=== PATIENT | female | born 1990 | race Two or more races ===

== ENCOUNTER 2020-05-11 14:11 | Emergency (ER) | payer OTHER ==
[~2020-05-11] VITALS: Ht 162.6 cm; Wt 102.1 kg
[2020-05-11 14:34] VITALS: BP 148/115
== END 2020-05-11 15:17 | disposition home or self-care (01) ==
LOC: ER 14:18
DX: J40 Bronchitis, not specified as acute or chronic (principal); F84.0 Autistic disorder

== ENCOUNTER 2020-05-21 16:52 | Inpatient (IN) | payer MEDICAID, OTHER ==
[~2020-05-21] VITALS: Ht 152.4 cm; Wt 111.2 kg
[2020-05-21 17:57] LABS: BASOPHILS # (AUTO) 0.1 /CMM (0.0-0.2); BASOPHILS % (AUTO) 0.9 % (0.0-2.0); EOSINOPHILS % (AUTO) 0.5 % (0.0-6.0); HEMATOCRIT 35 % (33-45); LYMPHOCYTES # (AUTO) 1.6 /CMM (0.8-4.8); LYMPHOCYTES % (AUTO) 12.3 % (20.0-44.0); MEAN CORPUSCULAR HGB CONC 32 g/dl (31.0-36.0); MEAN CORPUSCULAR VOLUME 93 fL (82-100); MONOCYTES # (AUTO) 0.8 /CMM (0.1-1.30); NEUTROPHILS # (AUTO) 10.5 /CMM (1.8-8.9); NEUTROPHILS % (AUTO) 80.3 % (43.0-81.0); PLATELET COUNT (AUTO) 243 /CMM (150-450); RED BLOOD CELL COUNT(AUTO) 3.76 MIL/uL (4.0-5.2); WHITE BLOOD COUNT (AUTO) 13.1 K/uL (4.3-11.0)
--- NOTE | 2020-05-21 18:08 | NUR ---
MOVE SHEET SUBMITTED.
[2020-05-21 18:09] LABS: CREATININE 0.8 mg/dL (0.6-1.3); POTASSIUM 3.9 mmol/L (3.5-5.1)
--- NOTE | 2020-05-21 18:17 | NUR ---
COVID SWAB AND FLU SWAB DONE AND SENT TO LAB. URINE COLLECTED VIA CLEAN CATCH AND SENT TO LAB
[2020-05-21 18:22] LABS: ALBUMIN 2.8 g/dL (3.4-5.0); BILIRUBIN,TOTAL 0.3 mg/dL (0.2-1.0); TOTAL PROTEIN, SERUM 6.5 g/dL (6.4-8.2)
[2020-05-21 18:25] LABS: BILIRUBIN,URINE Negative (NEGATIVE); COLOR,URINE YELLOW (YELLOW); LEUKOCYTE ESTERASE ,URINE Moderate (NEGATIVE); NITRITE, URINE Negative (NEGATIVE); PH,URINE 5.5 (5.0-8.0); PROTEIN,URINE Negative (NEGATIVE); UGLUCOSE Negative (NEGATIVE); UROBILINOGEN,URINE 0.2 EU/dL (0.2)
[2020-05-21 18:38] LABS: BACTERIA,URINE 2+ /HPF (None Seen); SQUAMOUS EPITHELIAL CELL,UR Few /HPF (None Seen)
[2020-05-21 18:57] LABS: D-DIMER 1.33 mg/L(FEU (0.17-0.50)
[2020-05-21] MEDS ORDERED: CEFTRIAXONE 1GM BAG (ER ONLY) 50 ML IV ONE ×2 (19:00→19:02)
[2020-05-21] MEDS ORDERED: AZITHROMYCIN 500 MG in IV D5W 250 ML IV ONE (19:00)
[2020-05-21] MEDS ORDERED: DEXAMETHASONE SOD PHOSPHATE 10 MG/ML VIAL IV ONE (19:00)
[2020-05-21 19:02] LABS: C-REACTIVE PROTEIN 3.1 mg/dL (0.0-0.9)
[2020-05-21] MEDS ORDERED: DEXAMETHASONE SOD PHOSPHATE 10 MG/ML VIAL ONE (19:02)
--- NOTE | 2020-05-21 19:11 | NUR ---
SUMA POLO AT BEDSIDE
[2020-05-21] MEDS ORDERED: AZITHROMYCIN 500 MG VIAL ONE (19:32)
[2020-05-21] MEDS ORDERED: ONDANSETRON HCL/PF 4 MG/2 ML VIAL IVP PRN (20:00)
[2020-05-21] MEDS ORDERED: HOME MED MISCELLANEOUS XX SCH (20:00)
[2020-05-21] MEDS ORDERED: ACETAMINOPHEN 650 MG/SUPP.RECT RC PRN (20:00)
[2020-05-21] MEDS ORDERED: ALBUTEROL SULFATE 8 GM HFA.AER.AD IH PRN (20:00)
[2020-05-21] MEDS ORDERED: GUAIFENESIN LA 600 MG TABLET.SA PO PRN (20:00)
--- NOTE | 2020-05-21 20:43 | NUR ---
TOOK OVER PT CARE. PT ON 4L NC SAT 98%, REMAINS ON MONITOR AND PULSE OX. PT REQUESTED TO EAT. PT PROVIDED WITH WATER AND CRACKERS.
--- NOTE | 2020-05-21 21:41 | NUR ---
PT REQUESTED FOR MORE FOOD. PROVIDED WITH CHUCK.
--- NOTE | 2020-05-21 23:12 | NUR ---
PT REQUESTED FOR COOKIES AND MILK.
--- NOTE | 2020-05-22 00:40 | NUR ---
PT NOTED TO BE ASLEEP, SAT 97%, 4L NC. VSS.
--- NOTE | 2020-05-22 04:10 | NUR ---
PT REQUESTING FOR FOOD, PT PROVIDED WITH CRACKERS AND WATER. PT AWARE BREAKFAST WILL BE SERVED AT 7:30AM
[2020-05-22 05:24] LABS: BASOPHILS % (AUTO) 0.2 % (0.0-2.0); EOSINOPHILS % (AUTO) 0.1 % (0.0-6.0); HEMATOCRIT 34 % (33-45); HEMOGLOBIN 10.8 g/dL (11.5-14.8); LYMPHOCYTES # (AUTO) 1.4 /CMM (0.8-4.8); LYMPHOCYTES % (AUTO) 9.7 % (20.0-44.0); MEAN CORPUSCULAR HGB CONC 32 g/dl (31.0-36.0); MEAN CORPUSCULAR VOLUME 92 fL (82-100); MONOCYTES # (AUTO) 0.6 /CMM (0.1-1.30); MONOCYTES % (AUTO) 3.9 % (2.0-12.0); NEUTROPHILS # (AUTO) 12.1 /CMM (1.8-8.9); NEUTROPHILS % (AUTO) 86.1 % (43.0-81.0); PLATELET COUNT (AUTO) 248 /CMM (150-450); RED BLOOD CELL COUNT(AUTO) 3.73 MIL/uL (4.0-5.2); WHITE BLOOD COUNT (AUTO) 14.1 K/uL (4.3-11.0)
[2020-05-22 05:35] LABS: ALBUMIN 2.7 g/dL (3.4-5.0); BILIRUBIN,TOTAL 0.3 mg/dL (0.2-1.0); CALCIUM, SERUM 7.1 mg/dL (8.5-10.1); CREATININE 0.7 mg/dL (0.6-1.3); TOTAL PROTEIN, SERUM 6.2 g/dL (6.4-8.2)
--- NOTE | 2020-05-22 07:11 | NUR ---
REMAINS ON 4L NC. SAT 97-99%. IN BED COMFORTABLY. VSS.
--- NOTE | 2020-05-22 07:35 | NUR ---
Pt in bed 110x4. on 02 via nc @ 5lpm. not in resp dsitress, breathing even and unlabored.
[2020-05-22] MEDS ORDERED: OXCA600T8 PO (08:34)
[2020-05-22] MEDS ORDERED: PARO20TA7 PO (08:34)
[2020-05-22] MEDS ORDERED: LATUDA (08:39)
[2020-05-22] MEDS ORDERED: ASCO100031 PO (08:39)
[2020-05-22] MEDS ORDERED: ARIP30TA3 PO (08:39)
[2020-05-22] MEDS ORDERED: CHLO10TA5 PO (08:39)
[2020-05-22] MEDS ORDERED: ENOXAPARIN SODIUM 40 MG/0.4 ML DISP.SYRIN SQ ONE (08:44)
[2020-05-22] MEDS ORDERED: OXCARBAZEPINE 150 MG TABLET ONE (08:44)
[2020-05-22] MEDS ORDERED: chlorproMAZINE HCL 25 MG TABLET ONE ×2 (08:44→14:52)
[2020-05-22] MEDS: OXCARBAZEPINE 150 MG TABLET PO SCH ×2 (09:11→17:53)
[2020-05-22] MEDS: ARIPIPRAZOLE 5 MG TABLET PO SCH (09:11)
[2020-05-22] MEDS: PAROXETINE HCL 20 MG TABLET PO SCH (09:11)
[2020-05-22] MEDS: chlorproMAZINE HCL 25 MG TABLET PO SCH ×3 (09:11→17:53)
[2020-05-22] MEDS: ASCORBIC ACID 500 MG TABLET PO SCH (09:11)
[2020-05-22] MEDS: ENOXAPARIN SODIUM 40 MG/0.4 ML DISP.SYRIN SQ SCH (09:12)
[2020-05-22] MEDS ORDERED: AZITHROMYCIN 500 MG in IV D5W 250 ML IV SCH (10:00)
[2020-05-22] MEDS ORDERED: ACETAMINOPHEN 325 MG TABLET ONE (10:31)
[2020-05-22] MEDS: ACETAMINOPHEN 325 MG TABLET PO PRN (10:35)
[2020-05-22] MEDS ORDERED: DEXAMETHASONE SOD PHOSPHATE 10 MG/ML VIAL ONE (11:55)
[2020-05-22] MEDS ORDERED: FUROSEMIDE 20 MG/2 ML VIAL ONE (11:55)
[2020-05-22] MEDS: DEXAMETHASONE SOD PHOSPHATE 10 MG/ML VIAL IV SCH (12:04)
[2020-05-22] MEDS: FUROSEMIDE 20 MG/2 ML VIAL IV SCH ×2 (12:05→17:53)
--- NOTE | 2020-05-22 12:57 | NUR ---
COVID RESULT: NEGATIVE
[2020-05-22 13:28] LABS: ABG BASE EXCESS 8.4 mmol/L; ABG OXYGEN SATURATION 89.8 % (92.0-98.5); ABG PCO2 46.7 mmHg (35.0-45.0); ABG PH 7.469 (7.350-7.450); ABG PO2 57.3 mmHg (75.0-100.0); AaDO2 174.2 mmHg; COHb 0.7 % (0.5-1.5); MetHb 0.2 % (0.0-1.5); SITE, ABG Right Radial; VENT MODE, BG 5L NC
--- NOTE | 2020-05-22 14:48 | NUR ---
GOT BED 106
--- NOTE | 2020-05-22 14:59 | NUR ---
REPORT GIVEN TO CHING UNGER FOR SISI
--- NOTE | 2020-05-22 15:31 | NUR ---
pt transported to unit on [place] with emt and rn at bedside w/ acls protocol.
[2020-05-22 15:35] VITALS: BP 146/74
--- NOTE | 2020-05-22 15:40 | NUR ---
MILL OPERATOR HEAD/1 NOTES Patient received from ED and report given by Tylor. Patient received ambulating to unit. Patient is alert and oriented with developmental delay. She is not in any distress. Tele monitor placed and vitals checked. Patient assessed for admission. No c/o pain or discomfort. Patient is on 5lpm 02 via n/c with 02 sat of 92%. Patient provided keiry care and reminded to use call light. Bed is in lowest and locked position. Call light with in reach.
[2020-05-22] MEDS ORDERED: CEFTRIAXONE 1 G in IV D5W 50 ML IV SCH (18:00)
[2020-05-22] MEDS: CEFTRIAXONE 2 G in IV D5W 100 ML IV SCH (18:54)
--- NOTE | 2020-05-22 18:55 | NUR ---
STRUCTURAL STEEL WORKER APPRENTICE/1 CLOSING NOTES Patient in bed in a comfortable position. Patient is not in any respiratory distress.On 02 5 lpm via n/c with 02 sat reading of 98%. Head of the bed kept elevated. No c/o sob. Patient reminded to use call light for assistance. Bed is in lowest and locked position. Will endorse to oncoming nurse for SISI.
[2020-05-22 20:00] VITALS: BP 104/61
[2020-05-22] MEDS: DOXYCYCLINE 100 MG in IV D5W 100 ML IV SCH (21:48)
[2020-05-23] VITALS (7 sets, daily range): BP systolic 94–139; BP diastolic 50–73
--- NOTE | 2020-05-23 07:30 | NUR ---
RN OPENING NOTE PATIENT IN BED, RESTING. NO S/S OF DISTRESS AT THIS TIME. ALERT/ORIENTED X3, WITH HISTORY OF MENTAL RETARDATION. PATIENT IS VERBAL, ABLE TO MAKE NEEDS KNOWN. CURRENTLY ON 5L O2 THERAPY VIA NASAL CANNULA. TOLERATING WELL, O2 SATURATION 96%. CURRENTLY HAS A R AC 20G IV, INTACT AND PATENT. PATIENT DENIES PAIN AT THIS TIME. ALL SAFETY MEASURES IN PLACE PER HOSPITAL POLICY, BED LOCKED IN LOWEST POSITION. CALL LIGHT WITHIN REACH. WILL CONT TO MONITOR AND PROVIDE TREATMENT.
[2020-05-23 07:49] LABS: CREATININE 0.7 mg/dL (0.6-1.3); POTASSIUM 3.9 mmol/L (3.5-5.1)
[2020-05-23 07:52] LABS: BASOPHILS % (AUTO) 0.4 % (0.0-2.0); EOSINOPHILS % (AUTO) 0.8 % (0.0-6.0); HEMATOCRIT 36 % (33-45); HEMOGLOBIN 11.3 g/dL (11.5-14.8); LYMPHOCYTES # (AUTO) 2.3 /CMM (0.8-4.8); LYMPHOCYTES % (AUTO) 21.1 % (20.0-44.0); MEAN CORPUSCULAR HGB CONC 31 g/dl (31.0-36.0); MEAN CORPUSCULAR VOLUME 93 fL (82-100); MONOCYTES # (AUTO) 0.8 /CMM (0.1-1.30); MONOCYTES % (AUTO) 7.1 % (2.0-12.0); NEUTROPHILS # (AUTO) 7.7 /CMM (1.8-8.9); NEUTROPHILS % (AUTO) 70.6 % (43.0-81.0); PLATELET COUNT (AUTO) 240 /CMM (150-450); RED BLOOD CELL COUNT(AUTO) 3.91 MIL/uL (4.0-5.2); WHITE BLOOD COUNT (AUTO) 10.8 K/uL (4.3-11.0)
[2020-05-23 08:00] LABS: CALCIUM, SERUM 7.4 mg/dL (8.5-10.1)
[2020-05-23] MEDS: DEXAMETHASONE SOD PHOSPHATE 10 MG/ML VIAL IV SCH (08:51)
[2020-05-23] MEDS: FUROSEMIDE 20 MG/2 ML VIAL IV SCH ×2 (08:51→16:24)
[2020-05-23] MEDS: OXCARBAZEPINE 150 MG TABLET PO SCH ×2 (08:52→16:19)
[2020-05-23] MEDS: ASCORBIC ACID 500 MG TABLET PO SCH (08:52)
[2020-05-23] MEDS: ARIPIPRAZOLE 5 MG TABLET PO SCH (08:52)
[2020-05-23] MEDS: PAROXETINE HCL 20 MG TABLET PO SCH (08:52)
[2020-05-23] MEDS: chlorproMAZINE HCL 25 MG TABLET PO SCH ×3 (08:52→20:12)
[2020-05-23] MEDS: ENOXAPARIN SODIUM 40 MG/0.4 ML DISP.SYRIN SQ SCH (08:54)
[2020-05-23] MEDS: DOXYCYCLINE 100 MG in IV D5W 100 ML IV SCH ×2 (08:56→20:13)
[2020-05-23] MEDS ORDERED: chlorproMAZINE HCL 25 MG TABLET PO SCH (12:22)
--- NOTE | 2020-05-23 16:20 | NUR ---
PATIENT IN BED, SLEEPING. TRIED TO WAKE UP FOR MEDICATIONS. PATIENT WOULD OPEN EYES TO TACTILE STIMULI, HOWEVER WOULD CLOSE EYES AGAIN AND GO BACK TO SLEEP. PATIENT TOO SEDATED FOR PO MEDICATION INTAKE. 1700 PO MEDS HELD DUE TO PATIENT NOT BEING ABLE TO SWALLOW THEM AT THIS TIME.
[2020-05-23] MEDS: CEFTRIAXONE 2 G in IV D5W 100 ML IV SCH (17:29)
--- NOTE | 2020-05-23 18:51 | NUR ---
RN OPENING NOTE PATIENT IN BED, RESTING. NO S/S OF DISTRESS AT THIS TIME. ALERT/ORIENTED X3, WITH HISTORY OF MENTAL RETARDATION. PATIENT IS VERBAL, ABLE TO MAKE NEEDS KNOWN. CURRENTLY ON 5L O2 THERAPY VIA NASAL CANNULA. TOLERATING WELL, O2 SATURATION 96%. CURRENTLY HAS A R UPPER ARM MIDLINE 18G, INTACT AND PATENT. PATIENT DENIES PAIN AT THIS TIME. ALL SAFETY MEASURES IN PLACE PER HOSPITAL POLICY, BED LOCKED IN LOWEST POSITION. CALL LIGHT WITHIN REACH. WILL ENDORSE TO PACK TRAIN DRIVER NURSE FOR SISI. Addendum: 05/23/20 at 1852 by MARLEY RAPP RN * RN CLOSING NOTE
--- NOTE | 2020-05-23 19:49 | NUR ---
INVENTORY ACCOUNTANT OPENING NOTE Patient awake in bed, A/O x3, with past medical history of mental retardation. Patient denies pain, nausea, vomiting, diarrhea. Afebrile. Ambulates with assist. Breathing even, slightly labored, on on 5 LPM NC, satting 95%. Skin is warm, pink, dry, intact. IV site JOHANNA midline 18g, patent and intact. Saline locked. No signs of redness or infiltration. BS active. Patient on regular diet, appetite is good. Patient is incontinent. Urine output clear and yellow. Bed in low position, wheels locked, side rails up x2, call light within reach.
--- NOTE | 2020-05-23 22:53 | NUR ---
GAS LEAK INSPECTOR NOTE Report given to CHING Morales for continuation of care.
--- NOTE | 2020-05-23 23:20 | NUR ---
MARITIME ENGINEER OPENING NOTE - RECEIVED SERGO TRANSFER RECEIVED PATIENT IN BED. A/OX3. ON OXYGEN 6L/MIN VIA NASAL CANNULA. RESPIRATIONS ARE EVEN, HEAVY BREATHER. NO C/O PAIN. EXTERNAL TELE MONITOR READ SINUS RHYTHM HR 91. IN NO APPARENT DISTRESS. IV ACCESS IN JOHANNA MIDLINE #18 PATENT AND SALINE LOCKED. BED IS LOW AND LOCKED, HOB ELEVATED IN SEMI FOWLERS, SIDE RAILS X2, CALL LIGHT WITHIN REACH. EXPLAINED USE OF CALL LIGHT. WILL CONTINUE TO MONITOR THROUGHOUT SHIFT
--- NOTE | 2020-05-23 23:29 | NUR ---
DRAMATIC READER NOTE Patient transferred to room 309-1.
[2020-05-24] VITALS: BP 129/61
[2020-05-24 04:00] VITALS: BP 143/59
[2020-05-24] MEDS: ACETAMINOPHEN 325 MG TABLET PO PRN (04:34)
--- NOTE | 2020-05-24 04:34 | NUR ---
television installer note adminsitered prn tylenol 650mg for c/o headache.
[2020-05-24 06:28] LABS: BASOPHILS # (AUTO) 0.1 /CMM (0.0-0.2); BASOPHILS % (AUTO) 0.5 % (0.0-2.0); EOSINOPHILS % (AUTO) 1.7 % (0.0-6.0); HEMATOCRIT 35 % (33-45); HEMOGLOBIN 11.1 g/dL (11.5-14.8); LYMPHOCYTES % (AUTO) 17.6 % (20.0-44.0); MEAN CORPUSCULAR HGB CONC 32 g/dl (31.0-36.0); MEAN CORPUSCULAR VOLUME 91 fL (82-100); MONOCYTES # (AUTO) 0.7 /CMM (0.1-1.30); MONOCYTES % (AUTO) 6.4 % (2.0-12.0); NEUTROPHILS # (AUTO) 8.5 /CMM (1.8-8.9); NEUTROPHILS % (AUTO) 73.8 % (43.0-81.0); PLATELET COUNT (AUTO) 244 /CMM (150-450); RED BLOOD CELL COUNT(AUTO) 3.82 MIL/uL (4.0-5.2); WHITE BLOOD COUNT (AUTO) 11.6 K/uL (4.3-11.0)
[2020-05-24 06:35] LABS: CALCIUM, SERUM 7.6 mg/dL (8.5-10.1); CREATININE 0.7 mg/dL (0.6-1.3); PHOSPHORUS 4.4 mg/dL (2.5-4.9); POTASSIUM 3.5 mmol/L (3.5-5.1)
--- NOTE | 2020-05-24 08:00 | NUR ---
GLUING PRESSMAN AM NOTES PATIENT RESTING IN BED. A/OX3. ON OXYGEN 8L/MIN VIA SIMPLE MASK. O2 SAT 94% .PATIENT IS HEAVILY CONGESTED WITH THICK MUCUS IN NOSE. PATIENT HAS BEEN BLOWING NOSE THROUGHOUT SHIFT. DOES SHOW S/S SOB. EXTERNAL TELE MONITOR READ SINUS RHYTHM. HR 91.NO DISTRESS. IV ACCESS MAINTAINED IN JOHANNA MIDLINE #18.ON FLUID RESTRICTIONS OF 1 LITER PER SHIFT AND 2L FOR 24 HRS.BED REMAINS LOW AND LOCKED, HOB ELEVATED IN HIGH FOWLERS, SIDE RAILS X3, CALL LIGHT WITHIN REACH.
[2020-05-24 08:18] VITALS: BP 167/79
--- NOTE | 2020-05-24 08:33 | NUR ---
CHURN TENDER CLOSING NOTE PATIENT RESTING IN BED. A/OX3. ON OXYGEN 8L/MIN VIA SIMPLE MASK. PATIENT IS HEAVILY CONGESTED WITH THICK MUCUS IN NOSE. PATIENT HAS BEEN BLOWING NOSE THROUGHOUT SHIFT. DOES SHOW S/S SOB. MANAGED HEADACHE WITH TYLENOL. EXTERNAL TELE MONITOR READ SINUS RHYTHM. NO DISTRESS. IV ACCESS MAINTAINED IN JOHANNA MIDLINE #18. BED REMAINS LOW AND LOCKED, HOB ELEVATED IN HIGH FOWLERS, SIDE RAILS X3, CALL LIGHT WITHIN REACH. WILL ENDORSE TO NEXT SHIFT.
[2020-05-24] MEDS: OXCARBAZEPINE 150 MG TABLET PO SCH ×2 (08:41→18:07)
[2020-05-24] MEDS: ENOXAPARIN SODIUM 40 MG/0.4 ML DISP.SYRIN SQ SCH (08:42)
[2020-05-24] MEDS: FUROSEMIDE 20 MG/2 ML VIAL IV SCH ×2 (08:42→18:07)
[2020-05-24] MEDS: DEXAMETHASONE SOD PHOSPHATE 10 MG/ML VIAL IV SCH (08:42)
[2020-05-24] MEDS: chlorproMAZINE HCL 25 MG TABLET PO SCH ×3 (08:42→20:14)
[2020-05-24] MEDS: ASCORBIC ACID 500 MG TABLET PO SCH (08:42)
--- NOTE | 2020-05-24 09:31 | NUR ---
WOUND CARE CONSULT: PT PRESENTS WITH CALLUSED HEELS. NO OPEN WOUNDS NOTED TO FEET. PT DENIES DISCOMFORT. PT REFUSED TO TURN FOR FULL SKIN ASSESSMENT. RECOMMENDATIONS MADE FOR SKIN PROTECTION. DISCUSSED WITH NURSING STAFF. IN AGREEMENT WITH PLAN OF CARE. WILL SEE PRN. Addendum: 05/24/20 at 0932 by JOSE EDWARDS WNDNU CURRENT CHANTELLE SCORE IS 22.
[2020-05-24] MEDS ORDERED: Z GUARD REMEDY 2 OZ OINT TP PRN (10:00)
--- NOTE | 2020-05-24 10:00 | NUR ---
PT TOLERATED O2 AT 4L/MIN VIA NC.WITH O2 SAT INITIALLY STARTED AT 85% TO 93% TOLERATING WELL.INSTRUCTED TO DO BREATHING EXERCISES.
[2020-05-24] MEDS: DOXYCYCLINE 100 MG in IV D5W 100 ML IV SCH ×2 (10:10→20:15)
[2020-05-24] MEDS: ARIPIPRAZOLE 5 MG TABLET PO SCH (10:59)
[2020-05-24 13:24] VITALS: BP 119/62
[2020-05-24 16:20] VITALS: BP 111/61
[2020-05-24] MEDS: CEFTRIAXONE 2 G in IV D5W 100 ML IV SCH (17:21)
--- NOTE | 2020-05-24 19:05 | NUR ---
CELERY STRIPPER OPENING NOTES RECEIVED PATIENT IN BED AWAKE ALERT AND ORIENTED X3, RESPIRATIONS EVEN AND UNLABORED WITH EQUAL RISE AND FALL OF CHEST, ON 4 L VIA NC TOLERATING IT WELL, RIGHT UPPER ARM MIDLINE INTACT AND PATENT, NO REDNESS, NO INFILTRATION PRESENT, ON JEWELRY INSPECTOR SR 97, SAFETY PRECAUTIONS RENDERED LOW BED AND LOCKED, ALL NEEDS ATTENDED AT THIS TIME REMAINS COMFORTABLE WILL CONTINUE TO MONITOR.
[2020-05-24 20:00] VITALS: BP_SYST 104; BP_SYST 107; BP_DIAS 65
[2020-05-25] VITALS: BP 115/53
[2020-05-25] MEDS: ACETAMINOPHEN 325 MG TABLET PO PRN (02:09)
[2020-05-25 04:36] VITALS: BP 130/61
--- NOTE | 2020-05-25 06:33 | NUR ---
RADIO DIVISION CAPTAIN CLOSING NOTES PATIENT IN BED AWAKE ALERT AND ORIENTED X3, RESPIRATIONS EVEN AND UNLABORED WITH EQUAL RISE AND FALL OF CHEST, ON 4 L VIA NC TOLERATING IT WELL, RIGHT UPPER ARM MIDLINE INTACT AND PATENT, NO REDNESS, NO INFILTRATION PRESENT, DSG REMAINS C/D/I. ON FORM TAMPER OPERATOR SR 90'S WITH EPISODES OF ST 102, SAFETY PRECAUTIONS RENDERED LOW BED AND LOCKED,BED ALARM IN PLACE, ALL NEEDS ATTENDED AT THIS TIME REMAINS COMFORTABLE WILL CONTINUE TO MONITOR AND ENDORSE TO NEXT SHIFT, PATIENT IS ON FLUID RESTRICTIONS ORDERS FOLLOWED, REMINDED PATIENT SHE IS ON FLUIDS RESTRICTIONS. REMAINS COMFORTABLE.ALL NEEDS WERE ATTENDED, FALL PRECAUTIONS MAINTAINED.
--- NOTE | 2020-05-25 07:30 | NUR ---
WEB MARKETING ASSISTANT OPENING NOTES PATIENT IS IN BED RESTING, ABLE TO BE AWAKENED. A/O X2-3, HX OF MENTAL RETARDATION, AND ON FLUID RESTRICTIONS 1L/SHIFT (2L/24HRS) PER PREVIOUS SHIFT RN REPORT, ABLE TO MAKE NEEDS KNOWN. BREATHING EVEN AND UNLABORED, ON O2 AT 4L VIA NC, EPISODE OF REMOVING O2 PER PREVIOUS RN REPORT WELL; REMINDERS TO PATIENT GIVEN TO KEEP O2 ON RIGHT UPPER ARM MIDLINE INTACT AND PATENT. ON HAND MEAT SALTER, READING OF SR, HR IN THE 90'S. SAFETY PRECAUTIONS IN PLACE: BED LOCKED AND ON LOWEST POSITION, SR UP X2, CALL LIGHT W/IN REACH. WILL CONTINUE TO MONITOR.
[2020-05-25 08:00] VITALS: BP 126/65
[2020-05-25] MEDS: ENOXAPARIN SODIUM 40 MG/0.4 ML DISP.SYRIN SQ SCH (08:20)
[2020-05-25] MEDS: FUROSEMIDE 20 MG/2 ML VIAL IV SCH ×2 (08:21→16:17)
[2020-05-25] MEDS: ASCORBIC ACID 500 MG TABLET PO SCH (08:21)
[2020-05-25] MEDS: chlorproMAZINE HCL 25 MG TABLET PO SCH ×3 (08:21→20:35)
[2020-05-25] MEDS: ARIPIPRAZOLE 5 MG TABLET PO SCH (08:21)
[2020-05-25] MEDS: DEXAMETHASONE SOD PHOSPHATE 10 MG/ML VIAL IV SCH (08:22)
[2020-05-25] MEDS: OXCARBAZEPINE 150 MG TABLET PO SCH ×2 (08:22→16:17)
[2020-05-25] MEDS: DOXYCYCLINE 100 MG in IV D5W 100 ML IV SCH ×2 (08:24→20:38)
--- NOTE | 2020-05-25 09:44 | NUR ---
RN NOTES PATIENT ACCIDENTALLY PULLED OUT JOHANNA MIDLINE; PATIENT STATED, "I WANTED TO GO TO THE BATHROOM SO I REMOVED IT". NO ACTIVE BLEEDING NOTED ON JOHANNA.
[2020-05-25 12:00] VITALS: BP 116/60
[2020-05-25 16:00] VITALS: BP 106/50
[2020-05-25 16:59] LABS: BASOPHILS % (AUTO) 0.3 % (0.0-2.0); EOSINOPHILS % (AUTO) 0.1 % (0.0-6.0); HEMATOCRIT 38 % (33-45); HEMOGLOBIN 11.8 g/dL (11.5-14.8); LYMPHOCYTES # (AUTO) 1.2 /CMM (0.8-4.8); LYMPHOCYTES % (AUTO) 11.6 % (20.0-44.0); MEAN CORPUSCULAR HGB CONC 31 g/dl (31.0-36.0); MEAN CORPUSCULAR VOLUME 91 fL (82-100); MONOCYTES # (AUTO) 0.4 /CMM (0.1-1.30); MONOCYTES % (AUTO) 3.8 % (2.0-12.0); NEUTROPHILS # (AUTO) 8.8 /CMM (1.8-8.9); NEUTROPHILS % (AUTO) 84.2 % (43.0-81.0); PLATELET COUNT (AUTO) 253 /CMM (150-450); RED BLOOD CELL COUNT(AUTO) 4.14 MIL/uL (4.0-5.2); WHITE BLOOD COUNT (AUTO) 10.5 K/uL (4.3-11.0)
[2020-05-25 17:16] LABS: CALCIUM, SERUM 7.8 mg/dL (8.5-10.1); CREATININE 0.6 mg/dL (0.6-1.3); POTASSIUM 3.7 mmol/L (3.5-5.1)
[2020-05-25] MEDS: CEFTRIAXONE 2 G in IV D5W 100 ML IV SCH (17:20)
--- NOTE | 2020-05-25 19:37 | NUR ---
SENIOR SUSTAINABILITY ADVISOR CLOSING NOTES PATIENT IS IN BED RESTING, AWAKE AND VERBALLY RESPONSIVE. A/O X2-3, HX OF MENTAL RETARDATION, ABLE TO MAKE NEEDS KNOWN. FLUID RESTRICTION OBSERVED (1L/SHIFT). BREATHING EVEN AND UNLABORED, CONTINUES ON O2 AT 4L VIA NC, EPISODE OF REMOVING O2, BUT PATIENT ABLE TO BE REDIRECTED TO PUT O2 BACK ON. REGINE MIDLINE ABLE TO BE INSERTED ON PATIENT, INTACT AND PATENT. ON TELE MONITOR, READING OF SR, HR IN THE LOW 90'S. SAFETY PRECAUTIONS MAINTAINED: BED LOCKED AND ON LOWEST POSITION, SR UP X2, CALL LIGHT W/IN REACH. ENDORSED TO HEADER SET UP OPERATOR RN FOR SISI.
[2020-05-25 20:00] VITALS: BP 97/55
--- NOTE | 2020-05-25 20:00 | NUR ---
TELE KLYSTROM TUBE TESTER INITIAL NOTES RECEIVED REPORT FROM AM NURSE AND SEEN PT IN BED SLEEPING AT THIS TIME WITH NO ACUTE DISTRESS NOTED. AROUSE EASILY , DENIES ANY PAIN OR ANY DISCOMFORT. RE-ORIENTED WHERE SHE AT , TELE SINUS RHYTHM HEART RATE 92, KEPT HER WARM AND COMFORTABLE AT ALL TIMES. BED ALARM SET FOR SAFETY SIDE RAILS X2 UP . PLACE CALL LIGHT AT REACH.
[2020-05-26] VITALS: BP 118/87
[2020-05-26 04:00] VITALS: BP 130/71
--- NOTE | 2020-05-26 07:00 | NUR ---
TELE BAIL AGENT CLOSING NOTES PATIENT BACK TO SLEEP AFTER USED THE RESTROOM. STABLE THROUGOUT THE NIGHT . PT NEEDS ENCOURAGEMENT TO LOSE WT AND NEEDS FURTHER INSTRUCTION BECAUSE NOTICED SHE LIKED A LITTLE GIRL AT TIMES. NO SOB NOTED EVEN IN ROOM AIR. O2 ON AND OFF. ALL DUE EMDS GIVEN AND ALL NEEDS MET. KEPT HER WARM AND COMFORTABLE AT ALL TIMES. TELE SINUS RHYTHM PER MONITOR. WILL ENDORSE TO AM NURSE.
--- NOTE | 2020-05-26 07:30 | NUR ---
EXHIBITIONS AND COLLECTIONS MANAGER OPENING NOTES RECEIVED PATIENT IN BED AWAKE, A/O X2-3. VERBALLY RESPONSIVE, DENIES PAIN OR ANY DISCOMFORTS AT THIS TIME. ON O2 AT 4L VIA N/C, TOLERATING WELL WITH NO SOB NOTED. LEFT UPPER ARM MIDLINE INTACT AND PATENT. ON EXTERNAL METAL FABRICATION SUPERVISOR WITH CURRENT READING OF ST, HR IN THE 110, NO C/O CARDIAC DISTRESS VOICED AT THIS TIME. SAFETY PRECAUTIONS IN PLACE: BED LOCKED AND ON LOWEST POSITION, SR UP X2, BED ALARM ON AND CALL LIGHT W/IN REACH. WILL CONTINUE TO MONITOR PT ACCORDINGLY.
[2020-05-26 08:00] VITALS: BP 101/59
[2020-05-26] MEDS: chlorproMAZINE HCL 25 MG TABLET PO SCH ×3 (08:19→20:27)
[2020-05-26] MEDS: OXCARBAZEPINE 150 MG TABLET PO SCH ×2 (08:19→16:22)
[2020-05-26] MEDS: ASCORBIC ACID 500 MG TABLET PO SCH (08:19)
[2020-05-26] MEDS: FUROSEMIDE 20 MG/2 ML VIAL IV SCH ×2 (08:20→16:21)
[2020-05-26] MEDS: ARIPIPRAZOLE 5 MG TABLET PO SCH (08:21)
[2020-05-26] MEDS: ENOXAPARIN SODIUM 40 MG/0.4 ML DISP.SYRIN SQ SCH (08:21)
[2020-05-26] MEDS: DOXYCYCLINE 100 MG in IV D5W 100 ML IV SCH (08:44)
--- NOTE | 2020-05-26 12:39 | NUR ---
RN NOTES PT SEEN BY JAMES VELEZ AND PT C/O PAIN ON LEFT INDEX FENGER. DR NEWELL GAVE VERBAL ORDER TO DO X0RAY OF LEFT INDEX FINGER TO R/O FRACTURE. WILL CONTINUE TO MONITOR
[2020-05-26] MEDS: ACETAMINOPHEN 325 MG TABLET PO PRN (12:42)
--- NOTE | 2020-05-26 12:43 | NUR ---
RN NOTES PRN TYLENOL 650 MG GIVEN AT 1242 FOR LEFT INDEX FINGER PAIN. WILL CONTINUE TO MONITOR
[2020-05-26 16:00] VITALS: BP 136/51
[2020-05-26] MEDS: CEFTRIAXONE 2 G in IV D5W 100 ML IV SCH (17:37)
--- NOTE | 2020-05-26 18:53 | NUR ---
ALPINE GUIDE CLOSING NOTES PATIENT IN BED AWAKE AND RESTING AT MODERATE HIGH BACKREST POSITION. A/O X2-3. ABLE TO MAKE NEEDS KNOWN. ON O2 AT 4L VIA N/C, TOLERATING WELL WITH NO SOB NOTED DURING THE DAY. REGINE MIDLINE INTACT, PATENT AND FLUSHES WELL. ON EXTERNAL MANAGER CARDIOVASCULAR WITH CURRENT READING OF SR/ST, HR B/W 90-110, NO C/O CARDIAC DISTRESS VOICED. ALL NEEDS AND CARE ANTICIPATED AND MET. SAFETY PRECAUTIONS IN PLACE: BED LOCKED AND ON LOWEST POSITION, SR UP X2, BED ALARM ON AND CALL LIGHT W/IN REACH. WILL ENDORSE TO PRACTICE ADVISOR NURSE FOR SISI.
[2020-05-26 20:00] VITALS: BP 109/57
[2020-05-26] MEDS: DOXYCYCLINE HYCLATE (100 MG) 100 MG TABLET PO SCH (21:47)
[2020-05-27] VITALS: BP 105/75
[2020-05-27 04:00] VITALS: BP 107/71
[2020-05-27 06:23] LABS: BASOPHILS # (AUTO) 0.1 /CMM (0.0-0.2); BASOPHILS % (AUTO) 0.5 % (0.0-2.0); EOSINOPHILS % (AUTO) 0.7 % (0.0-6.0); HEMATOCRIT 41 % (33-45); HEMOGLOBIN 12.7 g/dL (11.5-14.8); LYMPHOCYTES # (AUTO) 1.5 /CMM (0.8-4.8); LYMPHOCYTES % (AUTO) 12.3 % (20.0-44.0); MEAN CORPUSCULAR HGB CONC 31 g/dl (31.0-36.0); MEAN CORPUSCULAR VOLUME 92 fL (82-100); MONOCYTES # (AUTO) 0.7 /CMM (0.1-1.30); MONOCYTES % (AUTO) 5.8 % (2.0-12.0); NEUTROPHILS # (AUTO) 9.8 /CMM (1.8-8.9); NEUTROPHILS % (AUTO) 80.7 % (43.0-81.0); PLATELET COUNT (AUTO) 215 /CMM (150-450); RED BLOOD CELL COUNT(AUTO) 4.42 MIL/uL (4.0-5.2); WHITE BLOOD COUNT (AUTO) 12.1 K/uL (4.3-11.0)
[2020-05-27 07:08] LABS: CALCIUM, SERUM 7.6 mg/dL (8.5-10.1); CREATININE 0.7 mg/dL (0.6-1.3); MAGNESIUM 2.3 mg/dL (1.8-2.4); PHOSPHORUS 5.3 mg/dL (2.5-4.9); POTASSIUM 3.8 mmol/L (3.5-5.1)
--- NOTE | 2020-05-27 07:47 | NUR ---
MS/RN Opening note Patient received from production supervisor off shift. Sleeping soundly at this time, appears in no distress or discomfort. Left upper arm midline noted, no signs of infiltration seen. Bed in low setting, side rails X3 in upright position, brakes locked, bed alarm switched on. Call light within reach, will continue to monitor and ensure safety.
[2020-05-27 08:00] VITALS: BP_SYST 127; BP_DIAS 20; BP_DIAS 70
[2020-05-27] MEDS: DOXYCYCLINE HYCLATE (100 MG) 100 MG TABLET PO SCH ×2 (08:15→20:28)
[2020-05-27] MEDS: ASCORBIC ACID 500 MG TABLET PO SCH (08:15)
[2020-05-27] MEDS: OXCARBAZEPINE 150 MG TABLET PO SCH ×2 (08:16→17:20)
[2020-05-27] MEDS: FUROSEMIDE 20 MG/2 ML VIAL IV SCH (08:16)
[2020-05-27] MEDS: ARIPIPRAZOLE 5 MG TABLET PO SCH (08:16)
[2020-05-27] MEDS: chlorproMAZINE HCL 25 MG TABLET PO SCH ×3 (08:16→20:28)
[2020-05-27] MEDS: ENOXAPARIN SODIUM 40 MG/0.4 ML DISP.SYRIN SQ SCH (08:20)
--- NOTE | 2020-05-27 09:00 | NUR ---
MS/RN Medications Morning medications administered as ordered.
--- NOTE | 2020-05-27 09:30 | NUR ---
MS/RN Weight Daily weight - 145.1lb
[2020-05-27 12:00] VITALS: BP_SYST 100; BP_DIAS 52; BP_DIAS 56
--- NOTE | 2020-05-27 13:02 | NUR ---
MS/RN S/B Dr Richards Seen by Dr Richards - continue with antibiotics as per ID.
[2020-05-27] MEDS: ACETAMINOPHEN 325 MG TABLET PO PRN ×2 (14:41→22:53)
--- NOTE | 2020-05-27 14:43 | NUR ---
MS/RN Tylenol Tylenol 650mg given for headache.
[2020-05-27 16:00] VITALS: BP_SYST 100; BP_SYST 109; BP_DIAS 54; BP_DIAS 70
[2020-05-27] MEDS: CEFTRIAXONE 2 G in IV D5W 100 ML IV SCH (17:22)
--- NOTE | 2020-05-27 18:27 | NUR ---
MS/RN End note Patient remains in stable condition, no changes to plan of care. Will endorse to semiconductor lab technician.
--- NOTE | 2020-05-27 19:35 | NUR ---
TELERN FULLY AWAKE, KEEPING HERSELF BUSY DRAWING. ASKING FOR FOOD. PROVIDED SNACKS, FLUIDS RESTRICTED. ALL NEEDS ATTENDED, CONTINUED.
[2020-05-27 20:00] VITALS: BP 122/82
--- NOTE | 2020-05-27 22:00 | NUR ---
TELERN GOT UPSET, PULLED OUT TELEBOX AND MIDLINE. UNCOOPERATIVE THIS TIME, DOES NOT WANT TO BE DISTURB.
--- NOTE | 2020-05-27 22:30 | NUR ---
TELERN MORE CALM THIS TIME, AGREED TO TAKE HER NIGHT MEDS. GIVEN WITH SIPS OF WATER AND JUICE. STILL REFUSED IV INSERTION AND TELEBOX.
--- NOTE | 2020-05-27 23:00 | NUR ---
TELERN TYLENOL 650 MG PO ADMINISTERED FOR HER HEADACHE. ASSISTED EARLIER TO RESTROOM, STARTED HER PERIOD ASSISTED WEARING DISPOSABLE UNDERWEAR AND PADS.BACK TO BED.
[2020-05-28] VITALS: BP 116/66
--- NOTE | 2020-05-28 01:21 | NUR ---
TELERN ASLEEP. SNORING AROUSABLE TO NAME AND TOUCH. 02 MAINTAINED. NO SOB. CONVERSANT STATES SHE WANTS TO GO BACK TO SLEEP. WILL TRY TO PUT BACK TELE MONITOR. STILL REFUSED TO HAVE IV STARTED. CLOSELY WATCHED.
--- NOTE | 2020-05-28 01:52 | NUR ---
TELERN AWAKENED, REQUESTED FOR LIP BALM. ALL NEEDS ATTENDED.
--- NOTE | 2020-05-28 01:55 | NUR ---
TELERN FINALLY AGREED TO HAVE TELE BOX, MONITOR SHOWING NSR. REFUSED STILL IV INSERTION
--- NOTE | 2020-05-28 06:30 | NUR ---
TELERN REMAINS SR ON THE MONITOR. WILL NEED TO REPLACE MIDLINE, AUTOMOTIVE INTERNET SALES MANAGER NOTIFIED AND CN WELL . WANTED FOOD REMINDED BREAKFAST BY 0730. CONTINUED MONITORING
[2020-05-28 06:36] LABS: BASOPHILS # (AUTO) 0.1 /CMM (0.0-0.2); BASOPHILS % (AUTO) 0.6 % (0.0-2.0); EOSINOPHILS % (AUTO) 1.6 % (0.0-6.0); HEMATOCRIT 40 % (33-45); HEMOGLOBIN 12.6 g/dL (11.5-14.8); LYMPHOCYTES # (AUTO) 1.3 /CMM (0.8-4.8); LYMPHOCYTES % (AUTO) 14.3 % (20.0-44.0); MEAN CORPUSCULAR HGB CONC 32 g/dl (31.0-36.0); MEAN CORPUSCULAR VOLUME 91 fL (82-100); MONOCYTES # (AUTO) 0.5 /CMM (0.1-1.30); MONOCYTES % (AUTO) 5.3 % (2.0-12.0); NEUTROPHILS # (AUTO) 7.3 /CMM (1.8-8.9); NEUTROPHILS % (AUTO) 78.2 % (43.0-81.0); PLATELET COUNT (AUTO) 202 /CMM (150-450); RED BLOOD CELL COUNT(AUTO) 4.36 MIL/uL (4.0-5.2); WHITE BLOOD COUNT (AUTO) 9.3 K/uL (4.3-11.0)
[2020-05-28 06:59] LABS: CALCIUM, SERUM 7.8 mg/dL (8.5-10.1); CREATININE 0.6 mg/dL (0.6-1.3); POTASSIUM 3.8 mmol/L (3.5-5.1)
--- NOTE | 2020-05-28 07:56 | NUR ---
TELE/RN OPENING NOTES RECEIVED PATIENT ON BED AWAKE ALERT AND ORIENTED X2-3. PATIENT IS ON 4L OXYGEN VIA NASAL CANNULA TOLERATING WELL. PATIENT IN NO APPARENT RESPIRATORY DISTRESS NOTED. NO COMPLAINED OF PAIN NOTED AT THIS TIME. TELE MONITOR READING SINUS RHYTHM 97 BPM. WILL CONTINUE TO MONITOR.
[2020-05-28 08:00] VITALS: BP 103/61
[2020-05-28] MEDS: ARIPIPRAZOLE 5 MG TABLET PO SCH (08:24)
[2020-05-28] MEDS: chlorproMAZINE HCL 25 MG TABLET PO SCH ×2 (08:24→16:30)
[2020-05-28] MEDS: DOXYCYCLINE HYCLATE (100 MG) 100 MG TABLET PO SCH (08:24)
[2020-05-28] MEDS: ASCORBIC ACID 500 MG TABLET PO SCH (08:24)
[2020-05-28] MEDS: OXCARBAZEPINE 150 MG TABLET PO SCH ×2 (08:24→16:30)
[2020-05-28] MEDS: ENOXAPARIN SODIUM 40 MG/0.4 ML DISP.SYRIN SQ SCH (08:26)
[2020-05-28] MEDS ORDERED: DOXY100T2 PO (09:21)
[2020-05-28 12:00] VITALS: BP 100/62
[2020-05-28 16:00] VITALS: BP 126/79
--- NOTE | 2020-05-28 17:37 | NUR ---
RN NOTES PATIENT IS ALERT AND ORIENTED X 3. PATIENT IN ROOM AIR SATURATION 94%. PATIENT IN NO APPARENT RESPIRATORY DISTRESS NOTED. NO COMPLAINED OF PAIN. DISCHARGED INSTRUCTIONS GIVEN TO BHARATH (CAREGIVER). PATIENT LEFT THE HOSPITAL IN STABLE CONDITION. TILE SORTER BY BHARATH(CAREGIVER) AT 1730 VIA PRIVATE CAR.
== END 2020-05-28 17:30 | disposition home or self-care (01) | DRG 139 ==
LOC: ER 17:00 → TRANSITION 20:38 → TELE1 05-22 15:06 → TELE 05-23 23:20
PROVIDERS: ADMIT Nurse Practitioner Acute Care; ATTEND Internal Medicine
PROC: 05HY33Z Insertion of Infusion Device into Upper Vein, Percutaneous Approach (ICD-10-PCS; principal; 2020-05-25)
DX: J15.9 Unspecified bacterial pneumonia (principal); J96.01 Acute respiratory failure with hypoxia; N39.0 Urinary tract infection, site not specified; E44.0 Moderate protein-calorie malnutrition; E66.2 Morbid (severe) obesity with alveolar hypoventilation; Z68.42 Body mass index [BMI] 45.0-49.9, adult; I50.9 Heart failure, unspecified; I11.0 Hypertensive heart disease with heart failure; Z20.822 Contact with and (suspected) exposure to COVID-19; Z79.899 Other long term (current) drug therapy; F79 Unspecified intellectual disabilities; F84.0 Autistic disorder; F32.9 Major depressive disorder, single episode, unspecified; E87.70 Fluid overload, unspecified; B96.89 Other specified bacterial agents as the cause of diseases classified elsewhere; F29 Unspecified psychosis not due to a substance or known physiological condition
CPT/HCPCS: 36415; 36600; 71045-TC; 73140-TC; 80048-TC; 80053-TC; 81001; 82550-TC; 82728-TC; 82803-TC; 83605-TC; 83615-TC; 83735-TC; 83880; 84100-TC; 84703-TC; 85025-TC; 85378-TC; 85385-TC; 85730-TC; 86140-TC; 87040-TC; 87081-TC; 87086-TC; 93307-TC; G0378; J0456; J0696; J1100; J1650; J1940; J2405; J3490; J7050; J7060; Q0161; U0003